=== PATIENT | male | born 1965 ===

== ENCOUNTER 2021-01-28 17:07 | Emergency (ER) | payer OTHER ==
[~2021-01-28] VITALS: Ht 172.7 cm; Wt 63.5 kg
--- NOTE | 2021-01-28 17:10 | NUR ---
I attempted to triage the patient. When I went to the ER waiting room the patient stated that he just wanted a pair of shoes and did not want to be seen in the ER. I could not find him any shoes and gave him hospital socks and some water as he requested. After I left pt went to ER admitting window and stated that he now wanted "see a doctor". Pt ambulated to room 3 in the ER with steady gait and was triaged.
[2021-01-28 18:00] LABS: HEMATOCRIT 35.6 % (36.7-47.1); MEAN CORPUSCULAR HEMOGLOBIN 25.7 uug (23.8-33.4); MEAN CORPUSCULAR VOLUME 80.4 fL (73.0-96.2); PLATELET COUNT (AUTO) 334 K/uL (152-348)
[2021-01-28 18:03] LABS: CARBON DIOXIDE 29 mmol/L (21-32); CHLORIDE 106 mmol/L (98-107); CREATININE 1.1 mg/dL (0.6-1.3); GLUCOSE 99 mg/dL (74-106); POTASSIUM 4.2 mmol/L (3.5-5.1); UREA NITROGEN, BLOOD 17 mg/dL (7-18)
[2021-01-28 18:05] LABS: ETHANOL < 3 MG/DL (0-0)
[2021-01-28 18:09] LABS: ALANINE AMINOTRANSFERASE 40 U/L (16-63); ALKALINE PHOSPHATASE 70 U/L (50-136); ASPARTATE AMINOTRANSFERASE 50 U/L (15-37); BILIRUBIN,DIRECT 0.1 mg/dL (0.0-0.2); BILIRUBIN,TOTAL 0.4 mg/dL (0.2-1.0); TOTAL PROTEIN, SERUM 7.3 g/dL (6.4-8.2)
[2021-01-28 18:14] LABS: ACETAMINOPHEN < 2.0 ug/mL (10-30)
[2021-01-28 18:17] LABS: THYROID STIMULATING HORMONE 0.736 mIU/mL (0.358-3.740)
--- NOTE | 2021-01-28 19:00 | NUR ---
PT ELPOED PER PT'S PRIMARY NURSE TERRENCE BLANTON.
== END 2021-01-28 21:01 | disposition left against medical advice (07) ==
LOC: ER 17:11
DX: R41.82 Altered mental status, unspecified (principal); Z59.0 Homelessness; D64.9 Anemia, unspecified; Z20.822 Contact with and (suspected) exposure to COVID-19
CPT/HCPCS: 36415; 70030-TC; 71045; 84443; 85025; 85730; 93005; A4663; G0480